=== PATIENT | male | born 1985 | race Caucasian/White ===

== ENCOUNTER 2022-01-22 16:53 | Emergency (ER) | payer OTHER, BC, SELFPAY ==
--- NOTE | 2022-01-22 16:57 | ED.WOUNDLAC ---
HPI - Wound/Laceration General Chief Complaint: Wound/Laceration Stated Complaint: FINGER LACERATION Time Seen by Provider: 01/22/22 16:57 Source: patient and RN notes reviewed History of Present Illness HPI narrative: Patient is a 36-year-old male who presents the urgent care with complaints of a laceration to the left index finger and the left thumb. Patient states that he was using a gill box tender while at work, [employer], and cut his hand approximately at 1230 this afternoon. Patient states that he applied several bandages and when he took the Band-Aids off at home this evening, it started to bleed a lot. No other acute complaints. No acute distress noted. Patient aware of the plan of care. Some parts of this dictation were generated by voice recognition software and may contain typographical and/or grammatical inaccuracies. Related Data Home Medications Medication Instructions Recorded Confirmed atorvastatin 01/22/22 dulaglutide [Trulicity] mg SUBCUT 01/22/22 ergocalciferol (vitamin D2) 01/22/22 [Vitamin D2] losartan-hydrochlorothiazide tablet 01/22/22 pantoprazole PO 01/22/22 Allergies Allergy/AdvReac Type Severity Reaction Status Date / Time Penicillins Allergy Unknown Verified 04/23/10 11:39 Review of Systems Review of Systems: CONSTITUTIONAL: Denies fever, chills, or sweats. EYES: Denies visual changes, redness, or discharge. ENT: Denies rhinorrhea, congestion, sore throat, or otalgia. CARDIOVASCULAR: Denies chest pain, palpitations, or edema. RESPIRATORY: Denies cough or dyspnea. GASTROINTESTINAL: Denies abdominal pain, nausea, vomiting, or diarrhea. GENITOURINARY: Denies dysuria or hematuria. SKIN: Reports of a laceration to the left thumb and the left index finger MUSCULOSKELETAL: Denies back pain, joint pain, or myalgia. NEUROLOGIC: Denies headache, numbness, or weakness. All other systems reviewed are negative, except as documented in HPI. [facility] Family History Family History (Updated 06/08/14 @ 07:13 by DOCTOR UNKNOWN) Father Hypertension Family history of heart disease in male family member before age 55 Mother Hypertension Asthma Social History Social History Smoking status: Never smoker Alcohol intake: never Comments At the time of my signature, I reviewed and agree with the nursing past medical, surgical, social, and family history. There is no relevant family history pertinent to the patient complaint. Exam Narrative: GENERAL: This is a well-nourished, well-developed patient, in no apparent distress. HEAD: normocephalic, atraumatic. EYES: PERRL. Sclera clear/white. Vision is grossly intact. EARS: External ears normal NOSE: External nose normal with no obvious nasal discharge, nares without redness, no rhinorrhea. THROAT: Mucous membranes moist NECK: Neck supple SKIN: 1.5 cm linear laceration to the ulnar aspect of the left thumb. 3.5 cm linear laceration to the dorsal aspect of the left index finger NEURO: awake, alert, and oriented to person, place and time. There were no obvious focal neurologic abnormalities. EXTREMITIES: Positive strong left radial pulse with capillary refill less than 2 seconds. Range of motion to left upper extremity within normal limits. Course Course Level of Care: Express Care Visit Vital Signs Vital signs: Vital Signs Temperature 97.7 F 01/22/22 17:04 Pulse Rate 94 01/22/22 17:04 Respiratory Rate 16 01/22/22 17:04 Blood Pressure 134/84 01/22/22 17:04 Pulse Oximetry 99 01/22/22 17:04 Temperature 97.7 F 01/22/22 17:04 Pulse Rate 94 01/22/22 17:04 Respiratory Rate 16 01/22/22 17:04 Blood Pressure 134/84 01/22/22 17:04 Pulse Oximetry 99 01/22/22 17:04 Reviewed Procedures Laceration Laceration 1: Site: upper extremity (Left index finger) Side (If applicable): left Size (cm): 3.5 Description: linear Local Anesthetic: lidocaine 1% Amount of a
[2022-01-22 17:04] VITALS: BP 134/84; PULSE 94; RESP 16; TEMP 36.5; O2SAT 99
== END 2022-01-22 17:55 | disposition home or self-care (01) ==
PROVIDERS: Emergency Provider Nurse Practitioner Family
DX: S61.211A Laceration without foreign body of left index finger without damage to nail, initial encounter (principal); S61.012A Laceration without foreign body of left thumb without damage to nail, initial encounter; W45.8XXA Other foreign body or object entering through skin, initial encounter; Y99.0 Civilian activity done for income or pay; E78.00 Pure hypercholesterolemia, unspecified; I10 Essential (primary) hypertension; E11.9 Type 2 diabetes mellitus without complications
CPT/HCPCS: 12002; 99203; G0463

== ENCOUNTER 2022-01-29 14:09 | Emergency (ER) | payer OTHER, BC, SELFPAY ==
--- NOTE | 2022-01-29 14:17 | ED.WOUNDLAC ---
HPI - Wound/Laceration General Chief Complaint: Wound/Laceration Stated Complaint: suture removal Time Seen by Provider: 01/29/22 14:17 Source: patient Mode of arrival: ambulatory Limitations: no limitations History of Present Illness HPI narrative: 36 yo M here for suture removal. Was seen here 01/22 for laceration. Pt had two lacerations that were repaired. ROM and distal NV intact. No signs of infection. All systems reviewed and negative except as noted above. Related Data Home Medications Medication Instructions Recorded Confirmed atorvastatin 01/22/22 dulaglutide [Trulicity] mg SUBCUT 01/22/22 ergocalciferol (vitamin D2) 01/22/22 [Vitamin D2] losartan-hydrochlorothiazide tablet 01/22/22 pantoprazole PO 01/22/22 Allergies Allergy/AdvReac Type Severity Reaction Status Date / Time Penicillins Allergy Unknown Verified 04/23/10 11:39 Review of Systems Review of Systems: CONSTITUTIONAL: Denies fever, chills, or sweats. EYES: Denies visual changes, redness, or discharge. ENT: Denies rhinorrhea, congestion, sore throat, or otalgia. CARDIOVASCULAR: Denies chest pain, palpitations, or edema. RESPIRATORY: Denies cough or dyspnea. GASTROINTESTINAL: Denies abdominal pain, nausea, vomiting, or diarrhea. GENITOURINARY: Denies dysuria or hematuria. SKIN: Denies rash or itching. Healing lacerations to left hand. MUSCULOSKELETAL: Denies back pain, joint pain, or myalgia. NEUROLOGIC: Denies headache, numbness, or weakness. PSYCHIATRIC: Denies anxiety or depression. All other systems reviewed are negative, except as documented in HPI. PMFSH Family History Family History (Updated 06/08/14 @ 07:13 by DOCTOR UNKNOWN) Father Hypertension Family history of heart disease in male family member before age 55 Mother Hypertension Asthma Social History Social History Smoking status: Never smoker Alcohol intake: never Comments At time of signature, agree with nursing past medical, surgical, social and family history. There is no relevant family history pertinent to the presenting complaint. Exam Narrative: GENERAL: This is a well-nourished, well-developed patient, in no apparent distress. HEAD: normocephalic, atraumatic. EYES: PERRL. Sclera clear/white. Vision is grossly intact. EARS: External ears normal NOSE: External nose normal NECK: Neck supple, non-tender without lymphadenopathy, masses or thyromegaly. CARDIOVASCULAR: Regular rate and rhythm without murmurs, gallops, or rubs. RESPIRATORY: Clear to auscultation. Breath sounds equal bilaterally. No wheezes, rales, or rhonchi. SKIN: warm, Dry, intact with no suspicious lesions or rash, good texture and turgor. 2 healing lacerations to left hand. 1 laceration is about 1.5 cm and the second laceration is approximately 3 cm. NEURO: awake, alert, and oriented to person, place and time. There were no obvious focal neurologic abnormalities. EXTREMITIES: Normal range of motion all extremities. Course Course Level of Care: Express Care Visit Vital Signs Vital signs: Vital Signs Temperature 36.6 C 01/29/22 14:18 Pulse Rate 81 01/29/22 14:18 Respiratory Rate 16 01/29/22 14:18 Blood Pressure 131/79 01/29/22 14:18 Pulse Oximetry 99 01/29/22 14:18 Temperature 36.6 C 01/29/22 14:18 Pulse Rate 81 01/29/22 14:18 Respiratory Rate 16 01/29/22 14:18 Blood Pressure 131/79 01/29/22 14:18 Pulse Oximetry 99 01/29/22 14:18 Reviewed Procedures Other Procedure Procedure 1: Other Procedure: A total of 11 sutures were removed. 3 sutures from a 1.5 cm laceration and 8 sutures from a 3 cm laceration. There are no signs of infection. Patient tolerated procedure well. MDM - Wound/Laceration MDM Narrative Medical decision making narrative: Patient is aware of diagnosis, understands and agrees to treatment plan. Anticipatory guidance given. Patient agrees to follow-up as directed and is aware of reasons to seek car
[2022-01-29 14:18] VITALS: BP 131/79; PULSE 81; RESP 16; TEMP 36.6; O2SAT 99
== END 2022-01-29 14:37 | disposition home or self-care (01) ==
PROVIDERS: Emergency Provider Nurse Practitioner Family; PCP Family Medicine
DX: S61.412D Laceration without foreign body of left hand, subsequent encounter (principal); X58.XXXD Exposure to other specified factors, subsequent encounter; E78.00 Pure hypercholesterolemia, unspecified; I10 Essential (primary) hypertension; E11.9 Type 2 diabetes mellitus without complications
CPT/HCPCS: 99211; G0463

== ENCOUNTER 2023-10-08 14:45 | Emergency (ER) | payer BC, SELFPAY ==
--- NOTE | 2023-10-08 14:48 | ED.URI ---
HPI - URI/Sore Throat General Chief Complaint: Upper Respiratory Infection Stated Complaint: Sinus Infection symptoms Time Seen by Provider: 10/08/23 14:47 Source: patient Mode of arrival: ambulatory Limitations: no limitations History of Present Illness HPI Narrative: Froilan is a 38-year-old male patient presenting to the clinic today with complaints of possible sinus infection. He reports he is having sinus congestion/drainage/pain x2 weeks. MD elicited complaint: rhinorrhea, nasal congestion and sinus pain Related Data Home Medications Medication Instructions Recorded Confirmed atorvastatin 10 mg tablet 10 mg DIRECTED 01/22/22 10/08/23 dulaglutide 0.75 mg/0.5 mL 0.75 mg subcut DIRECTED 01/22/22 10/08/23 subcutaneous pen injector (Trulicity) ergocalciferol (vitamin D2) 1,250 1,250 mcg DIRECTED 01/22/22 10/08/23 mcg (50,000 unit) capsule (Vitamin D2) losartan 100 1 tablet DIRECTED 01/22/22 10/08/23 mg-hydrochlorothiazide 25 mg tablet pantoprazole 40 mg tablet,delayed 40 mg PO DIRECTED 01/22/22 10/08/23 release Allergies Allergy/AdvReac Type Severity Reaction Status Date / Time Penicillins Allergy Unknown Verified 04/23/10 11:39 Review of Systems Review of Systems: Pertinent positives per HPI. Patient denies any fever, chills, rash, visual changes, dizziness, cough, shortness of breath, chest pain, palpitations, nausea, vomiting, diarrhea, constipation, abdominal pain, or any urinary issues. PMFSH Family History Family History Father Hypertension Family history of heart disease in male family member before age 55 Mother Hypertension Asthma Social History Social History Smoking status: Never smoker Alcohol intake: never Comments At the time of my signature, I reviewed and agree with the nursing past medical, surgical, social, and family history. There is no relevant family history pertinent to the patient complaint. Exam Narrative: General: Well-developed, well nourished, in no apparent distress Head: Normocephalic, atraumatic Eyes: Pupils equally round and reactive to light bilaterally, EOM intact, sclera and conjunctive clear, no discharge, lids normal Ears: TMs intact and congested, ear canals clear, no drainage, grossly hearing normal. Nose: Nares patent, yellow nasal discharge, monitor inflammation, maxillary and frontal sinus tenderness. Mouth: Oral pharynx without lesions or masses, good dentition, MMM. Postnasal drip Neck: Supple, trachea midline, no enlargement of anterior or posterior cervical nodes, no thyroid masses or goiter palpable. Cardio: Regular rate and rhythm, s1 and s2 normal, no murmur appreciated. Resp: Clear to auscultation bilaterally, no rhonchi, rales, wheezing or rubs Course Course Emergency Course: Portions of this record may have been created with voice recognition software. Level of Care: Express Care Visit Vital Signs Vital signs: Vital signs reviewed MDM - URI/Sore Throat MDM Narrative Medical decision making narrative: At the time of visit patient is resting comfortably on the exam table. Patient appears to be nontoxic. I suspect patient has acute bacterial rhinosinusitis. Prescription for doxycycline and prednisone was sent to the pharmacy. Supportive measures were discussed with the patient and they voiced understanding discharge instructions and agrees to treatment plan. Return precautions reviewed Differential Diagnosis Differential diagnosis: Likely upper respiratory infection, otitis media, sinusitis, viral infection, bronchitis, influenza, pharyngitis and other (COVID) Discharge Plan Discharge Clinical Impression: Acute bacterial rhinosinusitis Patient Disposition: Home, Self-Care Condition: Stable Instructions: Antibiotic Form, Rhinosinusitis (ED) Additional Instruct
[2023-10-08 14:56] VITALS: BP 117/82; PULSE 103; RESP 16; TEMP 36.9; O2SAT 100
== END 2023-10-08 15:49 | disposition home or self-care (01) ==
PROVIDERS: Emergency Provider Nurse Practitioner Family; PCP Family Medicine
DX: J01.90 Acute sinusitis, unspecified (principal); B96.89 Other specified bacterial agents as the cause of diseases classified elsewhere; Z79.899 Other long term (current) drug therapy
CPT/HCPCS: 99213; G0463